=== PATIENT | female | born 2000 | race Caucasian/White ===

== ENCOUNTER 2021-10-28 08:08 | Emergency (ER) | payer SELFPAY ==
[2021-10-28 09:27] LABS: ESTIMATED GFR 110 mL/min (>60)
[2021-10-28 09:35] LABS: HEMOGLOBIN A1C 5.2 % (< 5.7)
== END 2021-10-28 10:19 | disposition home or self-care (01) ==
LOC: LB.ED 08:08
DX: R55 Syncope and collapse (principal)
CPT/HCPCS: 36415; 70450; 71250; 74176; 80053; 80307; 81001; 81025; 83036; 84484; 85025; 93005; 93010; 99282; 99284

== ENCOUNTER 2021-12-09 14:55 | Emergency (ER) | payer MEDICAID ==
[2021-12-09 13:56] LABS: ESTIMATED GFR 87 mL/min (>60)
== END 2021-12-09 15:00 | disposition home or self-care (01) ==
LOC: LB.ED 15:00
DX: R56.9 Unspecified convulsions (principal); R30.0 Dysuria
CPT/HCPCS: 36415; 80053; 80307; 81001; 81025; 83735; 85025; 87086; 99285

== ENCOUNTER 2022-02-22 | Emergency (ER) | payer MEDICAID ==
[2022-02-23] MEDS ORDERED: Sodium Chloride 0.9% 1,000 ML IV ONE (00:14)
[2022-02-23 01:05] LABS: ESTIMATED GFR 90 mL/min (>60)
[2022-02-23] MEDS: Ondansetron 4 MG/2 ML SDV ONE ×2 (04:24→04:27)
[2022-02-23] MEDS ORDERED: Ondansetron 4 MG/2 ML SDV IVPUSH ONE (04:25)
== END 2022-02-23 04:50 | disposition home or self-care (01) ==
LOC: LB.ED
DX: T42.6X1A Poisoning by other antiepileptic and sedative-hypnotic drugs, accidental (unintentional), initial encounter (principal); R11.2 Nausea with vomiting, unspecified; Z88.0 Allergy status to penicillin
CPT/HCPCS: 36415; 80053; 80143; 80307; 81001; 85025; 93005; 96361; 96374; 99285; A0425; A0429; J2405; J7030

== ENCOUNTER 2022-03-12 14:13 | Emergency (ER) | payer MEDICAID ==
[2022-03-12] MEDS: Ketorolac 60 MG/2 ML SDV IM ONE (15:30)
[2022-03-13] MEDS: Ketorolac 60 MG/2 ML SDV ONE (13:44)
== END 2022-03-12 15:48 | disposition home or self-care (01) ==
LOC: LB.ED 14:13
DX: S90.32XA Contusion of left foot, initial encounter (principal); Z88.0 Allergy status to penicillin
CPT/HCPCS: 73630; 96372; 99283; J1885

== ENCOUNTER 2022-05-01 11:10 | Emergency (ER) | payer MEDICAID ==
[2022-05-01] MEDS ORDERED: Ondansetron 4 MG Tab.DIS PO ONE (11:45)
[2022-05-01] MEDS ORDERED: Ondansetron 4 MG Tab.DIS ONE (11:55)
== END 2022-05-01 13:15 | disposition home or self-care (01) ==
LOC: LB.ED 11:10
DX: R51.9 Headache, unspecified (principal); R11.10 Vomiting, unspecified; J45.909 Unspecified asthma, uncomplicated; Z72.0 Tobacco use; Z88.0 Allergy status to penicillin
CPT/HCPCS: 36415; 80048; 81003; 85027; 99283; 99284; Q0162

== ENCOUNTER 2023-01-05 16:34 | Emergency (ER) | payer MEDICAID ==
[2023-01-05 17:43] LABS: BASOPHILS ABSOLUTE AUTO 0.05 K/uL (0.02-0.10); BASOPHILS PERCENT AUTO 0.4 % (0.0-0.5); EOSINOPHILS ABSOLUTE AUTO 0.66 K/uL (0.04-0.40); EOSINOPHILS PERCENT AUTO 5.5 % (1.0-5.0); LYMPHOCYTES ABSOLUTE AUTO 2.64 K/uL (1.50-4.00); LYMPHOCYTES PERCENT AUTO 21.9 % (20.0-40.0); MEAN CORPUSCULAR HEMOGLOBIN 25.5 pg (27.0-32.0); MEAN CORPUSCULAR HGB CONC 31.4 g/dL (31.0-35.0); MEAN CORPUSCULAR VOLUME 81 fL (76-96); MEAN PLATELET VOLUME 11.6 fL (6.0-10.0); MONOCYTES ABSOLUTE AUTO 0.75 K/uL (0.20-0.80); MONOCYTES PERCENT AUTO 6.2 % (3.0-10.0); NEUTROPHILS ABSOLUTE AUTO 7.95 K/uL (2.00-7.50); PLATELET COUNT,PLT 253 K/uL (150-500); RED BLOOD CELL COUNT 4.32 M/uL (3.80-5.80); RED CELL DISTRIBUTION WIDTH 15.1 % (11.0-16.0); WHITE BLOOD CELL COUNT,WBC 12.1 K/uL (4.0-11.0)
[2023-01-05 18:05] LABS: A/G RATIO 0.8 (0.8-2.0); ALBUMIN 3.3 g/dL (3.4-5.0); ANION GAP 10.9 mmol/L (5.0-15.0); BILIRUBIN TOTAL 0.2 mg/dL (0.0-1.0); BUN/CREATININE RATIO 12.2 (6-25); CALCIUM 8.3 mg/dL (8.5-10.1); CREATININE 0.74 mg/dL (0.55-1.02); EST CRCL DRUG DOSING (CG) 119.27 mL/min; POTASSIUM,K 3.9 mmol/L (3.5-5.1); PROTEIN TOTAL,TP 7.5 g/dL (6.4-8.2)
== END 2023-01-05 18:45 | disposition home or self-care (01) ==
LOC: LB.ED 16:34
DX: R51.9 Headache, unspecified (principal); R07.89 Other chest pain; Z88.0 Allergy status to penicillin
CPT/HCPCS: 36415; 80053; 84484; 85025; 93005; 99283; 99285

== ENCOUNTER 2023-03-29 19:17 | Emergency (ER) | payer MEDICAID ==
[2023-03-29] MEDS ORDERED: Sodium Chloride 0.9% 10 ML Syringe FLUSH PRN (19:22)
[2023-03-29 19:53] LABS: BASOPHILS ABSOLUTE AUTO 0.05 K/uL (0.02-0.10); BASOPHILS PERCENT AUTO 0.4 % (0.0-0.5); EOSINOPHILS PERCENT AUTO 3.4 % (1.0-5.0); HEMATOCRIT 35.2 % (37.0-47.0); HEMOGLOBIN 11.1 g/dL (11.5-16.5); LYMPHOCYTES ABSOLUTE AUTO 2.53 K/uL (1.50-4.00); LYMPHOCYTES PERCENT AUTO 21.5 % (20.0-40.0); MEAN CORPUSCULAR HEMOGLOBIN 25.1 pg (27.0-32.0); MEAN CORPUSCULAR HGB CONC 31.5 g/dL (31.0-35.0); MEAN CORPUSCULAR VOLUME 80 fL (76-96); MEAN PLATELET VOLUME 11.4 fL (6.0-10.0); MONOCYTES ABSOLUTE AUTO 0.92 K/uL (0.20-0.80); MONOCYTES PERCENT AUTO 7.8 % (3.0-10.0); NEUTROPHILS ABSOLUTE AUTO 7.86 K/uL (2.00-7.50); NEUTROPHILS PERCENT AUTO 66.9 % (45.0-70.0); PLATELET COUNT,PLT 245 K/uL (150-500); RED BLOOD CELL COUNT 4.43 M/uL (3.80-5.80); RED CELL DISTRIBUTION WIDTH 15.1 % (11.0-16.0); WHITE BLOOD CELL COUNT,WBC 11.8 K/uL (4.0-11.0)
[2023-03-29 19:58] LABS: APPEARANCE,URINE CLEAR (CLEAR); BILIRUBIN,URINE NEGATIVE (NEGATIVE); COLOR,URINE YELLOW; GLUCOSE,URINE NEGATIVE (NEGATIVE); KETONES,URINE 15 mg/dL (NEGATIVE); LEUKOCYTE ESTERASE,URINE NEGATIVE (NEGATIVE); NITRITE,URINE NEGATIVE (NEGATIVE); OCCULT BLOOD,URINE NEGATIVE (NEGATIVE); PROTEIN,URINE TRACE mg/dL (NEGATIVE); UROBILINOGEN,URINE 0.2 E.U./dL (0.2-1.0)
[2023-03-29 20:06] LABS: RBC,URINE 0-5 /HPF; WBC,URINE 0-5 /HPF
[2023-03-29 20:07] LABS: SQUAMOUS EPITHELIAL CELLS,UR FEW /HPF
[2023-03-29 20:09] LABS: AMPHETAMINES SCREEN, URINE NEGATIVE (NEGATIVE); BARBITURATE SCREEN,URINE NEGATIVE (NEGATIVE); BENZODIAZEPINES SCREEN,URINE NEGATIVE (NEGATIVE); METHADONE SCREEN, URINE NEGATIVE (NEGATIVE); METHAMPHETAMINES SCREEN, URINE NEGATIVE (NEGATIVE); OXYCODONE SCREEN,URINE NEGATIVE (NEGATIVE); THC SCREEN,URINE 50 NG/ML NEGATIVE (NEGATIVE)
[2023-03-29 20:16] LABS: A/G RATIO 0.9 (0.8-2.0); ALBUMIN 3.7 g/dL (3.4-5.0); ANION GAP 13.1 mmol/L (5.0-15.0); BILIRUBIN TOTAL 0.4 mg/dL (0.0-1.0); BUN/CREATININE RATIO 13.3 (6-25); CALCIUM 9.3 mg/dL (8.5-10.1); CARBON DIOXIDE,CO2 25.7 mmol/L (21.0-32.0); CREATININE 0.9 mg/dL (0.55-1.02); EST CRCL DRUG DOSING (CG) 94.54 mL/min; MAGNESIUM 1.9 mg/dL (1.8-2.4); POTASSIUM,K 3.8 mmol/L (3.5-5.1); PROTEIN TOTAL,TP 7.8 g/dL (6.4-8.2)
== END 2023-03-29 21:05 | disposition home or self-care (01) ==
LOC: LB.ED 19:17
DX: R56.9 Unspecified convulsions (principal); R45.7 State of emotional shock and stress, unspecified; E66.9 Obesity, unspecified; Z68.36 Body mass index [BMI] 36.0-36.9, adult; Z88.0 Allergy status to penicillin
CPT/HCPCS: 36415; 80053; 80307; 81001; 83735; 85025; 99285

== ENCOUNTER 2023-05-17 17:36 | Emergency (ER) | payer MEDICAID | END 2023-05-17 19:40 | disposition home or self-care (01) | LOC: LB.ED 17:36 | DX: T42.6X5A Adverse effect of other antiepileptic and sedative-hypnotic drugs, initial encounter (principal); Z88.0 Allergy status to penicillin | CPT/HCPCS: 99284; A0425; A0429 ==

== ENCOUNTER 2024-01-05 09:21 | Emergency (ER) | payer MEDICAID ==
[2024-01-05] MEDS: levETIRAcetam 1,000 MG in Sodium Chloride 0.9% 100 ML IV ONE (09:49)
[2024-01-05] MEDS: Sodium Chloride 0.9% 1,000 ML IV ONE (09:50)
[2024-01-05] MEDS ORDERED: Sodium Chloride 0.9% 10 ML Syringe FLUSH PRN (09:51)
[2024-01-05 09:52] LABS: BASOPHILS ABSOLUTE AUTO 0.06 K/uL (0.02-0.10); BASOPHILS PERCENT AUTO 0.5 % (0.0-0.5); EOSINOPHILS ABSOLUTE AUTO 0.74 K/uL (0.04-0.40); EOSINOPHILS PERCENT AUTO 5.7 % (1.0-5.0); HEMATOCRIT 40.4 % (37.0-47.0); LYMPHOCYTES ABSOLUTE AUTO 3.38 K/uL (1.50-4.00); LYMPHOCYTES PERCENT AUTO 25.9 % (20.0-40.0); MEAN CORPUSCULAR HEMOGLOBIN 26.8 pg (27.0-32.0); MEAN CORPUSCULAR HGB CONC 32.2 g/dL (31.0-35.0); MEAN CORPUSCULAR VOLUME 83 fL (76-96); MEAN PLATELET VOLUME 11.8 fL (6.0-10.0); MONOCYTES ABSOLUTE AUTO 0.92 K/uL (0.20-0.80); MONOCYTES PERCENT AUTO 7.1 % (3.0-10.0); NEUTROPHILS ABSOLUTE AUTO 7.94 K/uL (2.00-7.50); NEUTROPHILS PERCENT AUTO 60.8 % (45.0-70.0); PLATELET COUNT,PLT 267 K/uL (150-500); RED BLOOD CELL COUNT 4.85 M/uL (3.80-5.80); RED CELL DISTRIBUTION WIDTH 16.5 % (11.0-16.0)
[2024-01-05] MEDS: diazePAM 5 MG/ML MDV IV ONE (09:53)
[2024-01-05 10:11] LABS: A/G RATIO 0.8 (0.8-2.0); ALBUMIN 3.7 g/dL (3.4-5.0); ANION GAP 14.1 mmol/L (5.0-15.0); BILIRUBIN TOTAL 0.4 mg/dL (0.0-1.0); BUN/CREATININE RATIO 10.1 (6-25); CALCIUM 8.9 mg/dL (8.5-10.1); CARBON DIOXIDE,CO2 24.6 mmol/L (21.0-32.0); CREATININE 0.79 mg/dL (0.55-1.02); EST CRCL DRUG DOSING (CG) 110.77 mL/min; POTASSIUM,K 3.7 mmol/L (3.5-5.1); PROTEIN TOTAL,TP 8.5 g/dL (6.4-8.2)
[2024-01-08 01:47] LABS: KEPPRA (LEVETIRACETAM) 2 ug/mL (10-40)
== END 2024-01-05 11:10 | disposition home or self-care (01) ==
LOC: LB.ED 09:21
DX: R56.9 Unspecified convulsions (principal); E66.9 Obesity, unspecified; Z79.899 Other long term (current) drug therapy; Z88.0 Allergy status to penicillin; Z68.39 Body mass index [BMI] 39.0-39.9, adult
CPT/HCPCS: 36415; 71045; 80053; 80177; 80307; 82947; 85025; 96361; 96365; 99284-25; A0425; A0429; J1953; J3360; J3490; J7030

== ENCOUNTER 2024-04-08 10:14 | Emergency (ER) | payer MEDICAID ==
[2024-04-08 10:47] LABS: BASOPHILS ABSOLUTE AUTO 0.06 K/uL (0.02-0.10); BASOPHILS PERCENT AUTO 0.6 % (0.0-0.5); EOSINOPHILS ABSOLUTE AUTO 0.41 K/uL (0.04-0.40); HEMATOCRIT 35.1 % (37.0-47.0); HEMOGLOBIN 11.3 g/dL (11.5-16.5); LYMPHOCYTES ABSOLUTE AUTO 2.27 K/uL (1.50-4.00); LYMPHOCYTES PERCENT AUTO 21.9 % (20.0-40.0); MEAN CORPUSCULAR HEMOGLOBIN 26.9 pg (27.0-32.0); MEAN CORPUSCULAR HGB CONC 32.2 g/dL (31.0-35.0); MEAN CORPUSCULAR VOLUME 84 fL (76-96); MEAN PLATELET VOLUME 11.7 fL (6.0-10.0); MONOCYTES ABSOLUTE AUTO 0.63 K/uL (0.20-0.80); MONOCYTES PERCENT AUTO 6.1 % (3.0-10.0); NEUTROPHILS PERCENT AUTO 67.4 % (45.0-70.0); PLATELET COUNT,PLT 236 K/uL (150-500); RED CELL DISTRIBUTION WIDTH 14.2 % (11.0-16.0); WHITE BLOOD CELL COUNT,WBC 10.4 K/uL (4.0-11.0)
[2024-04-08] MEDS: Acetaminophen 325 MG Tab PO ONE (10:49)
[2024-04-08 11:15] LABS: COLOR,URINE YELLOW
[2024-04-08 11:16] LABS: APPEARANCE,URINE CLEAR (CLEAR); BILIRUBIN,URINE NEGATIVE (NEGATIVE); GLUCOSE,URINE NEGATIVE (NEGATIVE); KETONES,URINE NEGATIVE (NEGATIVE); LEUKOCYTE ESTERASE,URINE NEGATIVE (NEGATIVE); NITRITE,URINE NEGATIVE (NEGATIVE); OCCULT BLOOD,URINE MODERATE (NEGATIVE); PROTEIN,URINE NEGATIVE (NEGATIVE); UROBILINOGEN,URINE 0.2 E.U./dL (0.2-1.0)
[2024-04-08] MEDS ORDERED: Pantoprazole 40 MG Tab.CR ONE (13:30)
[2024-04-08] MEDS ORDERED: Acetaminophen/HYDROcodone 325-5 MG Tab ONE (13:30)
[2024-04-08] MEDS: Pantoprazole 40 MG Tab.CR PO ONE (14:00)
[2024-04-08] MEDS: Pantoprazole 40 MG Tab.CR ONE (16:41)
== END 2024-04-08 14:00 | disposition home or self-care (01) ==
LOC: LB.ED 10:14
DX: R10.12 Left upper quadrant pain (principal); E66.9 Obesity, unspecified; J45.909 Unspecified asthma, uncomplicated; Z88.1 Allergy status to other antibiotic agents; Z88.8 Allergy status to other drugs, medicaments and biological substances; Z68.39 Body mass index [BMI] 39.0-39.9, adult
CPT/HCPCS: 36415; 74176; 81003; 81025; 85025; 99284; A0425; A0429; A9270; 99283

== ENCOUNTER 2024-05-27 06:25 | Observation (INO) | payer MEDICAID ==
[2024-05-27] MEDS ORDERED: Sodium Chloride 0.9% 10 ML Syringe FLUSH PRN (06:45)
[2024-05-27 07:02] LABS: HEMOGLOBIN 11.8 g/dL (11.5-16.5); MEAN CORPUSCULAR HEMOGLOBIN 25.9 pg (27.0-32.0); MEAN CORPUSCULAR HGB CONC 31.1 g/dL (31.0-35.0); MEAN PLATELET VOLUME 11.7 fL (6.0-10.0); RED BLOOD CELL COUNT 4.56 M/uL (3.80-5.80); RED CELL DISTRIBUTION WIDTH 14.5 % (11.0-16.0); WHITE BLOOD CELL COUNT,WBC 13.9 K/uL (4.0-11.0)
[2024-05-27] MEDS: Sodium Chloride 0.9% 1,000 ML IV SCH (07:04)
[2024-05-27] MEDS: diazePAM 5 MG/ML MDV IV ONE (07:05)
[2024-05-27] MEDS: levETIRAcetam 1,000 MG in Sodium Chloride 0.9% 100 ML IV ONE (07:10)
[2024-05-27 07:18] LABS: ANION GAP 11.3 mmol/L (5.0-15.0); BUN/CREATININE RATIO 13.5 (6-25); CALCIUM 8.6 mg/dL (8.5-10.1); CARBON DIOXIDE,CO2 28.4 mmol/L (21.0-32.0); CREATININE 0.96 mg/dL (0.55-1.02); EST CRCL DRUG DOSING (CG) 94.43 mL/min; MAGNESIUM 1.6 mg/dL (1.8-2.4); POTASSIUM,K 3.7 mmol/L (3.5-5.1)
[2024-05-27] MEDS: LORazepam 2 MG/ML SDV IVPUSH ONE (08:03)
[2024-05-27 09:09] LABS: APPEARANCE,URINE CLEAR (CLEAR); BILIRUBIN,URINE NEGATIVE (NEGATIVE); COLOR,URINE YELLOW; GLUCOSE,URINE NEGATIVE (NEGATIVE); KETONES,URINE NEGATIVE (NEGATIVE); PROTEIN,URINE NEGATIVE (NEGATIVE)
[2024-05-27 09:10] LABS: BACTERIA,URINE FEW /HPF; LEUKOCYTE ESTERASE,URINE NEGATIVE (NEGATIVE); NITRITE,URINE NEGATIVE (NEGATIVE); OCCULT BLOOD,URINE NEGATIVE (NEGATIVE); RBC,URINE NOT SEEN /HPF; SQUAMOUS EPITHELIAL CELLS,UR FEW /HPF; UROBILINOGEN,URINE 0.2 E.U./dL (0.2-1.0); WBC,URINE 0-5 /HPF
[2024-05-27] MEDS: Magnesium Sulfat/D5W 1GM/100ML 1 GM in Premix Bag 1 BAG IV ONE (10:36)
[2024-05-27] MEDS: Magnesium Sulfat/D5W 1GM/100ML 100 ML ONE (10:39)
[2024-05-27 11:37] LABS: HEMATOCRIT 36.6 % (37.0-47.0); HEMOGLOBIN 11.7 g/dL (11.5-16.5); MEAN CORPUSCULAR HEMOGLOBIN 26.3 pg (27.0-32.0); MEAN PLATELET VOLUME 11.4 fL (6.0-10.0); RED BLOOD CELL COUNT 4.45 M/uL (3.80-5.80); RED CELL DISTRIBUTION WIDTH 14.6 % (11.0-16.0); WHITE BLOOD CELL COUNT,WBC 13.3 K/uL (4.0-11.0)
[2024-05-27] MEDS: Albuterol 0.083% 2.5 MG/3 ML Neb Soln NEB ONE (11:54)
[2024-05-27] MEDS: Ketorolac 15 MG/ML SDV IVPUSH ONE (13:30)
[2024-05-27 13:41] LABS: INFLUENZA A NAA NEGATIVE (NEGATIVE); INFLUENZA B NAA NEGATIVE (NEGATIVE); RESPIRATORY SYNCYTIAL VIR NAA NEGATIVE (NEGATIVE)
[2024-05-27 13:55] LABS: CORONAVIRUS COVID-19 NAA NEGATIVE (NEGATIVE)
[2024-05-27] MEDS ORDERED: Ondansetron 4 MG/2 ML SDV IV PRN (15:56)
[2024-05-27] MEDS: levETIRAcetam 500 MG Tab PO SCH (16:39)
[2024-05-27] MEDS ORDERED: Ibuprofen 200 MG Tab PO PRN (17:45)
[2024-05-27] MEDS ORDERED: traMADol 50 MG Tab PO PRN (17:46)
[2024-05-27] MEDS: Acetaminophen 325 MG Tab PO PRN (17:56)
[2024-05-28 08:58] LABS: HEMATOCRIT 36.8 % (37.0-47.0); HEMOGLOBIN 11.7 g/dL (11.5-16.5); MEAN CORPUSCULAR HEMOGLOBIN 26.1 pg (27.0-32.0); MEAN CORPUSCULAR HGB CONC 31.8 g/dL (31.0-35.0); MEAN PLATELET VOLUME 11.8 fL (6.0-10.0); RED BLOOD CELL COUNT 4.48 M/uL (3.80-5.80); RED CELL DISTRIBUTION WIDTH 14.6 % (11.0-16.0); WHITE BLOOD CELL COUNT,WBC 10.8 K/uL (4.0-11.0)
[2024-05-28 09:01] LABS: ANION GAP 11.5 mmol/L (5.0-15.0); BUN/CREATININE RATIO 10.8 (6-25); CALCIUM 8.5 mg/dL (8.5-10.1); CARBON DIOXIDE,CO2 27.4 mmol/L (21.0-32.0); CREATININE 0.83 mg/dL (0.55-1.02); EST CRCL DRUG DOSING (CG) 109.23 mL/min; POTASSIUM,K 3.9 mmol/L (3.5-5.1)
== END 2024-05-28 11:00 | disposition home or self-care (01) ==
LOC: LB.ED 06:25 → LB.MS 15:56
PROVIDERS: ADMIT Surgery; ATTEND Surgery
DX: R56.9 Unspecified convulsions (principal); J45.909 Unspecified asthma, uncomplicated; F32.A Depression, unspecified; Z79.899 Other long term (current) drug therapy; Z88.0 Allergy status to penicillin; Z88.8 Allergy status to other drugs, medicaments and biological substances
CPT/HCPCS: 0241U; 36415; 70450; 71045; 80048; 81001; 82947; 83735; 84484; 85027; 85379; 96361; 96365; 96375; 96376; 99222; 99238; 99285-25; A9270-GY; J1885; J1953; J2060; J3360; J3475

== ENCOUNTER 2024-06-03 09:46 | Emergency (ER) | payer MEDICAID ==
[2024-06-03] MEDS ORDERED: Ketorolac 15 MG/ML SDV IM ONE (10:08)
[2024-06-03] MEDS: Sodium Chloride 0.9% 1,000 ML IV SCH (10:09)
[2024-06-03 10:15] LABS: BASOPHILS ABSOLUTE AUTO 0.05 K/uL (0.02-0.10); BASOPHILS PERCENT AUTO 0.3 % (0.0-0.5); EOSINOPHILS ABSOLUTE AUTO 0.65 K/uL (0.04-0.40); HEMATOCRIT 36.3 % (37.0-47.0); HEMOGLOBIN 11.4 g/dL (11.5-16.5); LYMPHOCYTES ABSOLUTE AUTO 2.69 K/uL (1.50-4.00); LYMPHOCYTES PERCENT AUTO 16.7 % (20.0-40.0); MEAN CORPUSCULAR HEMOGLOBIN 26.1 pg (27.0-32.0); MEAN CORPUSCULAR HGB CONC 31.4 g/dL (31.0-35.0); MEAN CORPUSCULAR VOLUME 83 fL (76-96); MEAN PLATELET VOLUME 11.8 fL (6.0-10.0); MONOCYTES PERCENT AUTO 6.2 % (3.0-10.0); NEUTROPHILS PERCENT AUTO 72.8 % (45.0-70.0); PLATELET COUNT,PLT 251 K/uL (150-500); RED BLOOD CELL COUNT 4.36 M/uL (3.80-5.80); RED CELL DISTRIBUTION WIDTH 14.9 % (11.0-16.0); WHITE BLOOD CELL COUNT,WBC 16.1 K/uL (4.0-11.0)
[2024-06-03] MEDS: Ketorolac 15 MG/ML SDV IVPUSH ONE (10:16)
[2024-06-03 10:34] LABS: C-REACTIVE PROTEIN 15.4 mg/L (<5.0); MAGNESIUM 1.7 mg/dL (1.8-2.4)
[2024-06-03 10:38] LABS: INR 0.9 (1.0-3.5); PTT,PARTIAL THROMBOPLSTIN TIME 25.7 SECONDS (24.4-33.2)
[2024-06-03 10:39] LABS: PROTHROMBIN TIME 9.7 sec (9.0-11.5)
[2024-06-03 10:39] LABS: APPEARANCE,URINE CLEAR (CLEAR); COLOR,URINE YELLOW
[2024-06-03 10:40] LABS: AMPHETAMINES SCREEN, URINE NEGATIVE (NEGATIVE); BACTERIA,URINE FEW /HPF; BARBITURATE SCREEN,URINE NEGATIVE (NEGATIVE); BENZODIAZEPINES SCREEN,URINE NEGATIVE (NEGATIVE); BILIRUBIN,URINE NEGATIVE (NEGATIVE); GLUCOSE,URINE NEGATIVE (NEGATIVE); KETONES,URINE NEGATIVE (NEGATIVE); LEUKOCYTE ESTERASE,URINE NEGATIVE (NEGATIVE); METHADONE SCREEN, URINE NEGATIVE (NEGATIVE); METHAMPHETAMINES SCREEN, URINE NEGATIVE (NEGATIVE); NITRITE,URINE NEGATIVE (NEGATIVE); OCCULT BLOOD,URINE NEGATIVE (NEGATIVE); OXYCODONE SCREEN,URINE NEGATIVE (NEGATIVE); PROTEIN,URINE NEGATIVE (NEGATIVE); RBC,URINE NOT SEEN /HPF; THC SCREEN,URINE 50 NG/ML NEGATIVE (NEGATIVE); UROBILINOGEN,URINE 0.2 E.U./dL (0.2-1.0); WBC,URINE 0-5 /HPF
[2024-06-03 10:44] LABS: A/G RATIO 0.8 (0.8-2.0); ALBUMIN 3.6 g/dL (3.4-5.0); ANION GAP 13.4 mmol/L (5.0-15.0); BILIRUBIN TOTAL 0.3 mg/dL (0.0-1.0); CARBON DIOXIDE,CO2 26.7 mmol/L (21.0-32.0); CREATININE 0.88 mg/dL (0.55-1.02); EST CRCL DRUG DOSING (CG) 103.02 mL/min; POTASSIUM,K 4.1 mmol/L (3.5-5.1); TSH ULTRASENSITIVE 3.78 uIU/mL (0.358-3.740)
[2024-06-03] MEDS: diazePAM 5 MG/ML MDV IV ONE (11:10)
== END 2024-06-03 12:30 | disposition home or self-care (01) ==
LOC: LB.ED 09:46
DX: R20.0 Anesthesia of skin (principal); M79.10 Myalgia, unspecified site; E66.9 Obesity, unspecified; Z88.0 Allergy status to penicillin; Z88.8 Allergy status to other drugs, medicaments and biological substances; Z68.36 Body mass index [BMI] 36.0-36.9, adult
CPT/HCPCS: 36415; 71250; 74176; 80053; 80307; 81001; 82550; 83605; 83735; 84443; 84484; 85025; 85610; 85730; 86140; 96361; 96374; 96375; 99284; 99285-25; J1885; J3360

== ENCOUNTER 2024-06-05 13:50 | Emergency (ER) | payer MEDICAID ==
[2024-06-05] MEDS: Ondansetron 4 MG Tab.DIS PO ONE (14:19)
[2024-06-05] MEDS: Acetaminophen 500 MG Tab PO ONE (14:19)
[2024-06-05 14:52] LABS: BASOPHILS ABSOLUTE AUTO 0.05 K/uL (0.02-0.10); BASOPHILS PERCENT AUTO 0.4 % (0.0-0.5); EOSINOPHILS ABSOLUTE AUTO 0.56 K/uL (0.04-0.40); EOSINOPHILS PERCENT AUTO 4.5 % (1.0-5.0); HEMATOCRIT 38.3 % (37.0-47.0); HEMOGLOBIN 12.4 g/dL (11.5-16.5); LYMPHOCYTES ABSOLUTE AUTO 2.77 K/uL (1.50-4.00); LYMPHOCYTES PERCENT AUTO 22.3 % (20.0-40.0); MEAN CORPUSCULAR HEMOGLOBIN 26.4 pg (27.0-32.0); MEAN CORPUSCULAR HGB CONC 32.4 g/dL (31.0-35.0); MEAN CORPUSCULAR VOLUME 82 fL (76-96); MEAN PLATELET VOLUME 11.5 fL (6.0-10.0); NEUTROPHILS ABSOLUTE AUTO 8.52 K/uL (2.00-7.50); NEUTROPHILS PERCENT AUTO 68.8 % (45.0-70.0); PLATELET COUNT,PLT 260 K/uL (150-500); RED CELL DISTRIBUTION WIDTH 15.1 % (11.0-16.0); WHITE BLOOD CELL COUNT,WBC 12.4 K/uL (4.0-11.0)
[2024-06-05 15:01] LABS: APPEARANCE,URINE CLEAR (CLEAR); COLOR,URINE YELLOW
[2024-06-05 15:02] LABS: BILIRUBIN,URINE NEGATIVE (NEGATIVE); GLUCOSE,URINE NEGATIVE (NEGATIVE); KETONES,URINE NEGATIVE (NEGATIVE); LEUKOCYTE ESTERASE,URINE NEGATIVE (NEGATIVE); NITRITE,URINE NEGATIVE (NEGATIVE); OCCULT BLOOD,URINE NEGATIVE (NEGATIVE); PROTEIN,URINE NEGATIVE (NEGATIVE); UROBILINOGEN,URINE 0.2 E.U./dL (0.2-1.0)
[2024-06-05 15:05] LABS: ANION GAP 12.8 mmol/L (5.0-15.0); CALCIUM 9.4 mg/dL (8.5-10.1); CARBON DIOXIDE,CO2 28.4 mmol/L (21.0-32.0); CREATININE 0.94 mg/dL (0.55-1.02); EST CRCL DRUG DOSING (CG) 86.39 mL/min; MAGNESIUM 1.8 mg/dL (1.8-2.4); POTASSIUM,K 4.2 mmol/L (3.5-5.1)
== END 2024-06-05 16:13 | disposition home or self-care (01) ==
LOC: LB.ED 13:50
DX: F44.9 Dissociative and conversion disorder, unspecified (principal); R25.1 Tremor, unspecified; J45.909 Unspecified asthma, uncomplicated; E66.9 Obesity, unspecified; Z68.41 Body mass index [BMI] 40.0-44.9, adult; Z88.1 Allergy status to other antibiotic agents; Z88.8 Allergy status to other drugs, medicaments and biological substances; Z79.899 Other long term (current) drug therapy
CPT/HCPCS: 36415; 80048; 80177; 81003; 83735; 85025; 99284; A0425; A0429; A9270-GY; Q0162

== ENCOUNTER 2024-08-24 16:38 | Emergency (ER) | payer MEDICAID ==
[2024-08-24 17:23] LABS: BASOPHILS ABSOLUTE AUTO 0.04 K/uL (0.02-0.10); BASOPHILS PERCENT AUTO 0.3 % (0.0-0.5); EOSINOPHILS ABSOLUTE AUTO 0.13 K/uL (0.04-0.40); EOSINOPHILS PERCENT AUTO 1.1 % (1.0-5.0); HEMATOCRIT 38.2 % (37.0-47.0); LYMPHOCYTES ABSOLUTE AUTO 2.19 K/uL (1.50-4.00); LYMPHOCYTES PERCENT AUTO 18.6 % (20.0-40.0); MEAN CORPUSCULAR HEMOGLOBIN 26.4 pg (27.0-32.0); MEAN CORPUSCULAR HGB CONC 31.4 g/dL (31.0-35.0); MEAN CORPUSCULAR VOLUME 84 fL (76-96); MEAN PLATELET VOLUME 12.1 fL (6.0-10.0); MONOCYTES ABSOLUTE AUTO 0.65 K/uL (0.20-0.80); MONOCYTES PERCENT AUTO 5.5 % (3.0-10.0); NEUTROPHILS ABSOLUTE AUTO 8.76 K/uL (2.00-7.50); NEUTROPHILS PERCENT AUTO 74.5 % (45.0-70.0); PLATELET COUNT,PLT 257 K/uL (150-500); RED BLOOD CELL COUNT 4.54 M/uL (3.80-5.80); RED CELL DISTRIBUTION WIDTH 14.9 % (11.0-16.0); WHITE BLOOD CELL COUNT,WBC 11.8 K/uL (4.0-11.0)
[2024-08-24 17:50] LABS: A/G RATIO 0.9 (0.8-2.0); ALBUMIN 3.8 g/dL (3.4-5.0); ANION GAP 13.6 mmol/L (5.0-15.0); BILIRUBIN TOTAL 0.4 mg/dL (0.0-1.0); BUN/CREATININE RATIO 6.1 (6-25); CALCIUM 9.1 mg/dL (8.5-10.1); CARBON DIOXIDE,CO2 25.2 mmol/L (21.0-32.0); CREATININE 0.99 mg/dL (0.55-1.02); EST CRCL DRUG DOSING (CG) 90.78 mL/min; POTASSIUM,K 3.8 mmol/L (3.5-5.1); PROTEIN TOTAL,TP 8.2 g/dL (6.4-8.2); TSH ULTRASENSITIVE 2.437 uIU/mL (0.358-3.740)
[2024-08-24] MEDS: Sodium Chloride 0.9% 1,000 ML IV SCH (18:14)
[2024-08-24 19:35] LABS: AMPHETAMINES SCREEN, URINE NEGATIVE (NEGATIVE); BARBITURATE SCREEN,URINE NEGATIVE (NEGATIVE); BENZODIAZEPINES SCREEN,URINE NEGATIVE (NEGATIVE); METHADONE SCREEN, URINE NEGATIVE (NEGATIVE); METHAMPHETAMINES SCREEN, URINE NEGATIVE (NEGATIVE); OXYCODONE SCREEN,URINE NEGATIVE (NEGATIVE); THC SCREEN,URINE 50 NG/ML POSITIVE (NEGATIVE)
[2024-08-24 19:49] LABS: APPEARANCE,URINE CLEAR (CLEAR); COLOR,URINE YELLOW
[2024-08-24 19:50] LABS: BILIRUBIN,URINE NEGATIVE (NEGATIVE); GLUCOSE,URINE NEGATIVE (NEGATIVE); KETONES,URINE NEGATIVE (NEGATIVE); LEUKOCYTE ESTERASE,URINE TRACE (NEGATIVE); NITRITE,URINE NEGATIVE (NEGATIVE); OCCULT BLOOD,URINE LARGE (NEGATIVE); PROTEIN,URINE NEGATIVE (NEGATIVE); SQUAMOUS EPITHELIAL CELLS,UR FEW /HPF; UROBILINOGEN,URINE 0.2 E.U./dL (0.2-1.0)
[2024-08-25] MEDS: Haloperidol Lactate 5 MG/ML SDV IM ONE (00:10)
[2024-08-25] MEDS: diphenhydrAMINE 50 MG/ML SDV IM ONE (00:10)
[2024-08-25] MEDS: LORazepam 2 MG/ML SDV IM ONE (00:10)
[2024-08-25] MEDS: levETIRAcetam 500 MG Tab PO SCH (10:10)
[2024-08-27 08:11] LABS: KEPPRA (LEVETIRACETAM) 47 ug/mL (10-40)
== END 2024-08-25 13:57 ==
LOC: LB.ED 16:38
DX: T14.91XA Suicide attempt, initial encounter (principal); Z88.0 Allergy status to penicillin; E66.9 Obesity, unspecified; Z88.8 Allergy status to other drugs, medicaments and biological substances
CPT/HCPCS: 36415; 80053; 80143; 80177; 80179; 80307; 81001; 81025; 84443; 85025; 93005; 96360; 96372; 99285; 99285-25; J1200; J1630; J2060; J7030

== ENCOUNTER 2024-10-27 14:36 | Emergency (ER) | payer MEDICAID ==
[2024-10-27 15:26] LABS: BASOPHILS ABSOLUTE AUTO 0.05 K/uL (0.02-0.10); BASOPHILS PERCENT AUTO 0.4 % (0.0-0.5); EOSINOPHILS ABSOLUTE AUTO 0.51 K/uL (0.04-0.40); EOSINOPHILS PERCENT AUTO 4.0 % (1.0-5.0); LYMPHOCYTES ABSOLUTE AUTO 1.80 K/uL (1.50-4.00); LYMPHOCYTES PERCENT AUTO 14.3 % (20.0-40.0); MEAN PLATELET VOLUME 10.9 fL (6.0-10.0); MONOCYTES ABSOLUTE AUTO 0.77 K/uL (0.20-0.80); MONOCYTES PERCENT AUTO 6.1 % (3.0-10.0); NEUTROPHILS ABSOLUTE AUTO 9.49 K/uL (2.00-7.50); NEUTROPHILS PERCENT AUTO 75.2 % (45.0-70.0); PLATELET COUNT,PLT 235 K/uL (150-500); RED BLOOD CELL COUNT 3.83 M/uL (3.80-5.80); RED CELL DISTRIBUTION WIDTH 14.7 % (11.0-16.0); WHITE BLOOD CELL COUNT,WBC 12.6 K/uL (4.0-11.0)
[2024-10-27 15:46] LABS: A/G RATIO 0.9 (0.8-2.0); ALANINE AMINOTRANSFERASE,ALT 28 U/L (12-78); ASPARTATE AMNIOTRANSFERASE,AST 16 U/L (15-37); BILIRUBIN TOTAL 0.3 mg/dL (0.0-1.0); BLOOD UREA NITROGEN,BUN 5 mg/dL (8-26); CARBON DIOXIDE,CO2 24.8 mmol/L (21.0-32.0); CHLORIDE,CL 105 mmol/L (98-107); CREATININE 0.79 mg/dL (0.55-1.02); EST CRCL DRUG DOSING (CG) 105.86 mL/min; ESTIMATED GFR 106 mL/min (>60); GLUCOSE RANDOM 101 mg/dL (74-100); POTASSIUM,K 3.2 mmol/L (3.5-5.1); PROTEIN TOTAL,TP 7.5 g/dL (6.4-8.2); SODIUM,NA 138 mmol/L (136-145); TSH ULTRASENSITIVE 2.200 uIU/mL (0.358-3.740)
[2024-10-27 15:53] LABS: ETHANOL BLOOD MEDICAL < 3.0 mg/dL (<3.0)
[2024-10-27 16:12] LABS: APPEARANCE,URINE CLEAR (CLEAR); GLUCOSE,URINE NEGATIVE (NEGATIVE); OCCULT BLOOD,URINE NEGATIVE (NEGATIVE)
[2024-10-27 16:18] LABS: AMPHETAMINES SCREEN, URINE NEGATIVE (NEGATIVE); METHADONE SCREEN, URINE NEGATIVE (NEGATIVE); METHAMPHETAMINES SCREEN, URINE NEGATIVE (NEGATIVE); OXYCODONE SCREEN,URINE NEGATIVE (NEGATIVE); SQUAMOUS EPITHELIAL CELLS,UR FEW /HPF; THC SCREEN,URINE 50 NG/ML NEGATIVE (NEGATIVE)
== END 2024-10-27 16:47 | disposition home or self-care (01) ==
LOC: LB.ED 14:36
DX: R45.851 Suicidal ideations (principal); E66.9 Obesity, unspecified; J45.909 Unspecified asthma, uncomplicated; Z79.899 Other long term (current) drug therapy; Z79.51 Long term (current) use of inhaled steroids; Z88.1 Allergy status to other antibiotic agents; Z88.8 Allergy status to other drugs, medicaments and biological substances; Z68.41 Body mass index [BMI] 40.0-44.9, adult
CPT/HCPCS: 36415; 80053; 80307; 81001; 84443; 85025; 99285